=== PATIENT | male | born 1950 | race Caucasian/White ===

== ENCOUNTER 2020-03-16 19:36 | Emergency (ER) | payer MEDICAID ==
[~2020-03-16] VITALS: Ht 172.7 cm; Wt 80.0 kg
[2020-03-16 19:57] VITALS: BP 165/98
== END 2020-03-16 22:35 | disposition left against medical advice (07) ==
LOC: ER 19:47
DX: K08.89 Other specified disorders of teeth and supporting structures (principal); Z53.21 Procedure and treatment not carried out due to patient leaving prior to being seen by health care provider